=== PATIENT | female | born 1980 | race Asian ===

== ENCOUNTER 2019-03-14 06:00 | Day surgery (SDC) | payer OTHER ==
[2019-03-12 15:29] LABS: BASOPHILS 0.1 % (0-2); EOSINOPHILS 1.4 % (0-7); HEMATOCRIT 42.6 % (36.0-48.0); HEMOGLOBIN 14.4 g/dL (12-16); IMMATURE GRANULOCYTES 0.1 % (0-5); LYMPHOCYTES 25.3 % (15-50); MCH 31.1 pg (26.0-34.0); MCHC 33.8 g/dL (31.0-37.0); MEAN PLATELET VOLUME 11.5 fL (7.4-10.4); MONOCYTES 10.2 % (2-11); NEUTROPHILS 62.9 % (40-80); PLATELET COUNT 244 10x3/uL (130-400); RBC 4.63 10x6/uL (4.00-5.40); RDW 11.9 % (11.5-14.5)
[~2019-03-14] VITALS: Ht 149.9 cm; Wt 58.5 kg
[~2019-03-14 06:00] MED LIST: BIRTH CONTROL PILLS; DOXYCYCLINE HY100 M2 PO; ETHI; HYDROCODON-ACE1 EAC7 PO; IBUPROFEN600 MG PO; OMEPRAZOLE40 MG PO; [UNRECOGNIZED DRUG - OTHER]
[2019-03-14 06:22] LABS: HCG URINE NEGATIVE (NEGATIVE)
[2019-03-14 06:41] VITALS: BP 140/90; BMI 26.1
[2019-03-14 06:56] VITALS: Ht 149.9 cm; Wt 58.5 kg
--- NOTE | 2019-03-24 14:22 | OP ---
PATIENT NAME: ZAHRA STONE MEDICAL RECORD: [id number] :78 LOCATION:D[facility] ADMISSION DATE: SURGEON: NICK BETANCUR MD DATE OF OPERATION: 03/14/2019 PREOPERATIVE DIAGNOSES: 1. Menorrhagia. 2. The patient desires permanent sterility. POSTOPERATIVE DIAGNOSES: 1. Menorrhagia. 2. The patient desires permanent sterility. PROCEDURES: Laparoscopic tubal ligation via bipolar cautery and hysteroscopy, D&C with NovaSure endometrial ablation. SURGEON: Nick Betancur MD ESTIMATED BLOOD LOSS: Minimal. INTRAVENOUS FLUIDS: Per anesthesia records. HYSTEROSCOPIC FLUID LOSS: Less than 50 cc of 0.9 normal saline. FINDINGS: 1. Grossly normal-appearing uterus, fallopian tubes, bilateral ovaries. 2. Grossly normal-appearing external genitalia, cervix, and endometrial canal. SPECIMENS: Included endometrial curettings. DESCRIPTION OF PROCEDURE: The patient was taken to the operating room where general anesthesia was achieved without difficulty. At this point, the patient was placed in the dorsal lithotomy position in the [facility]. The patient was straight catheterized for approximately 100 cc of clear yellow urine and a sponge stick was placed in the vagina for uterine elevation. At this point, the patient was draped. Attention was turned to the umbilicus where a 5-mm skin incision was made and a 5-mm bladeless trocar was used to enter the intraperitoneal space under direct visualization of laparoscope. Following visual confirmation, the introducer was removed and the scope was replaced and found to be intraperitoneal. Opening pressure was found to be less than 10 mmHg and the patient was insufflated. A second 5-mm port was placed approximately 3-4 cm above the pubic symphysis in the midline. Another 5-mm incision was made and a 5-mm bladeless trocar was used to enter the intraperitoneal space under direct visualization of laparoscope. Attention was then turned to the uterus over the fallopian tubes and ovaries were identified. The [employer] bipolar cautery paddles were then used to completely desiccate the midsection of the tube approximately 5 cm. Good hemostasis was noted and no damage to any surrounding organs were noted at that time. The patient was then desufflated and the trocars were removed and the skin incisions were repaired with 3-0 Vicryl in an interrupted fashion. Attention was then turned to the vagina, where a Graves speculum was placed and the sponge stick had been removed, a single tooth tenaculum was used to grasp the anterior lip of the cervix. The patient was found to be significantly dilated and hysteroscopy was placed into the cervical os without difficulty and survey was performed. Curettage performed in all 4 quadrants. The patient was then sounded and the uterine OPERATIVE REPORT [id number] ZAHRA STONE cavity length was assessed. The NovaSure was then calculated for cervical length and the cavity depth and deployed into the uterus without resistance. The fan was then deployed per instructions. Width was recorded and the cervical collar was advanced. The vacuum precheck was performed times 2 and found to be stable and the burn cycle was performed. Following the end of the NovaSure cycle, the cervical cap was then pulled back. The device was unlocked and the NovaSure was removed from the uterus using the bow and arrow method. No bleeding was noted from the cervical os at that time. The tenaculum was removed. The patient tolerated the procedure well, transferred to postanesthesia recovery stable without incident. TRANSINT:[id number] Voice Confirmation ID: [id number] DOCUMENT ID: [id number] NICK BETANCUR MD at 1422 CC: [id number] DICTATION DATE: 03/21/19 1327 [facility] OPERATOR: 03/21/19 1635 [facility] 03/14/19 [facility] [address] [place] [address]
== END 2019-03-14 10:45 | disposition home or self-care (01) ==
LOC: D.OPS 06:00 → D.PAN 07:30 → D.OPS 10:45
PROVIDERS: ATTEND Obstetrics & Gynecology
DX: Z30.2 Encounter for sterilization (principal); N92.6 Irregular menstruation, unspecified